=== PATIENT | female | born 2000 | race Asian ===

== ENCOUNTER 2024-03-03 12:20 | Outpatient (AMB) | payer SELFPAY ==
--- NOTE | 2024-03-03 12:29 | MHC.OFFWIV ---
Intake Vital Signs 03/03/24 12:33 Height 4 ft 8 in Weight 95 lb BMI 21.3 BP 110/70 Blood Pressure Location Lt brachial Position Sitting Pulse 62 Pulse Source Pulse Oximeter Pulse Oximetry (%) 100 Oxygen Delivery Method Room Air Intake Visit Reasons: EP ? UTI Intake Note: Patient here for burning when urinating that has been present for about 1 week. Patient Tobacco Use Status: Never used Tobacco Allergies No Known Allergies Allergy (Verified 03/03/24 12:34) Do you need a note to return to daycare/school/sports/work: No HPI HPI Comments History of Present Illness Details Patient is a 23-year-old female who is here with her mother complaining of few days of burning with urination, increased frequency of urination and feeling like she does not completely empty her bladder. She denies any blood in her urine low back pain or fevers. [facility] Social History Patient Tobacco Use Status: Never used Tobacco Review of Systems Const All systems reviewed & are unremarkable except as noted in HPI and below Physical Exam Vital Signs: Last Vital Signs Pulse 41 L 03/03/24 12:33 BP 110/70 03/03/24 12:33 Pulse Ox 100 03/03/24 12:33 Oxygen Delivery Method Room Air 03/03/24 12:33 BMI result Body Mass Index 21.3 Const General: cooperative, healthy appearing, comfortable and no acute distress Orientation/consciousness: patient oriented x3 HEENT Head: Yes normal to inspection Ears: hearing grossly normal bilaterally General nose exam: Normal external nose present Face and sinus: Yes normal facial exam Neck Neck: Yes normal visual inspection, Yes trachea midline and Yes supple Resp Effort & Inspection: normal respiratory effort and able to speak in complete sentences Skin General skin exam: no rashes or lesions noted Neuro General: patient oriented x3 Psych Appearance: grossly normal Speech and movement: Normal speech and movement present Attitude: cooperative Thought process: Normal thought process present Insight: Good insight present (Psych) Judgement: Good judgement present (Psych) Assessment & Plan Assessment & Plan (1) UTI (urinary tract infection): Code(s): N39.0 - Urinary tract infection, site not specified Qualifiers: Urinary tract infection type: acute cystitis Hematuria presence: without hematuria Qualified Code(s): N30.00 - Acute cystitis without hematuria Plan: UA negative for infection or blood, we will send antibiotic and treat patient based on her symptoms. Recommended if she develops a fever or blood in her urine to follow up with her PCP Plan See above Medications: New nitrofurantoin monohyd/m-cryst 100 mg (Macrobid) must administer with a meal/food 100 mg PO Q12H 5 days 10 caps 0RF Coding Level of Care Code New Pt Level 3 (72546) Diagnoses Acute cystitis without hematuria N30.00 Urinary tract infection type: acute cystitis Hematuria presence: without hematuria
[2024-03-03 12:33] VITALS: BP 110/70; PULSE 62; O2SAT 100; BMI 21.3
== END 2024-03-03 13:42 | disposition home or self-care (01) ==
PROVIDERS: Visit Provider Physician Assistant
DX: N30.00 Acute cystitis without hematuria (principal)

== ENCOUNTER → 2024-03-03 12:20 | Outpatient (BNVA) | payer SELFPAY | DX: N30.00 Acute cystitis without hematuria (principal) | CPT/HCPCS: 81003; 99202 ==

== ENCOUNTER 2025-03-28 11:14 | Outpatient (REF) | payer OTHER, SELFPAY ==
--- NOTE | ~2025-03-28 | XR_ITS ---
EXAMINATION: XR HIP, RIGHT CLINICAL INFORMATION: M79.604 - Pain in right leg COMPARISON: None available. TECHNIQUE: Two views of the right hip. Pelvis 1 view. FINDINGS: Right hip: No visible acute fracture, dislocation or suspicious bony lesion. Hip joint space is maintained. No abnormal soft tissue calcification. Single pelvis x-ray: No visible acute fracture, dislocation or suspicious bony lesion. SI joints and symphysis pubis are intact. No suspicious soft tissue calcification. XR/XR hip RT w [id number] IMPRESSION: No radiographic evidence of acute findings Electronically signed by: Himanshu Landers MD 03/28/2025 01:53 PM EDT
== END 2025-03-28 11:15 | disposition home or self-care (01) ==
LOC: HO.HMGCX 11:14
PROVIDERS: Visit Provider Physician Assistant Medical
DX: M79.604 Pain in right leg (principal)
CPT/HCPCS: 73502; 99212

== ENCOUNTER 2025-03-28 11:14 | Outpatient (AMB) | payer OTHER, SELFPAY ==
[2025-03-28 12:35] VITALS: BP 102/68; PULSE 72; RESP 16; TEMP 36.9; O2SAT 98
--- NOTE | 2025-03-28 12:35 | AM.OFFWIN_ITS ---
Intake Vital Signs 03/28/25 12:35 Weight 116 lb BP 102/68 Blood Pressure Location Lt brachial Position Sitting Respiration 16 Pulse 72 Temp 98.4 F Pulse Oximetry (%) 98 Oxygen Delivery Method Room Air Intake Visit Reasons: EP possible muscle pull right leg/ [phone] Intake Note: Pt is coming in for right leg pain for 5 days . No recent injury. Patient Tobacco Use Status: Never used Tobacco Geographic Information Systems Manager Required: Yes Geographic Information Systems Manager Name: Kwadwo Accompanied by: Spouse Allergies No Known Allergies Allergy (Verified 03/28/25 12:40) Do you need a note to return to daycare/school/sports/work: No HPI HPI Comments History of Present Illness Details History of Present Illness - The patient is a 24-year-old [place]jarati speaking female presenting with her and clinical resource director for right leg pain. - She has been having right upper leg pa in and cramping that has persisted for f zeb days. - The pain is localized to the upper leg and began suddenly without a clear inciting event. - The patient reports no associated back , hip, or abdominal pain. - The pain is exacerbated by activities such as bending, lifting, or walking, but not by palpation. - The patient has attempted massage and exercise at home to alleviate the pain. - The patient has a history of similar p ain episodes before , which resolved spontaneously. - The pain has become more frequent and persistent since the third month of . - The patient denies any numbness, tingl ing, or history of arthritis. Physical Exam General: Cooperative, healthy appearing, comfortable, no acute distress and well developed Orientation: Patient oriented x3 Limitations: Pain in the groin area, especially when walking, bending, or lifting Respiratory: Normal respiratory effort and able to speak in complete sentences. Clear to auscultation bilaterally Cardiovascular: Regular rate and rhythm. Normal S1 and S2 Skin: No rashes or lesions noted Neuro: Sensation is intact. Extremities: FROM of the right hip, knee and ankle on the right. Adduction and abduction of the hip is intact. No click noted. TTP of the right lateral leg and upper leg anteriorly. No TTP of the knee, calf, lower leg or ankle. Strength is 5/5 on the LE. DTR are 2+. Ambulates with steady gait. Patient was informed and verbally consented to the use of an ambient scribe for clinic note documentation during this visit. [facility] Social History Patient Tobacco Use Status: Never used Tobacco Physical Exam Vital Signs: Last Vital Signs Temp 98.4 F 03/28/25 12:35 Pulse 72 03/28/25 12:35 Resp 16 03/28/25 12:35 BP 102/68 03/28/25 12:35 Pulse Ox 98 03/28/25 12:35 Oxygen Delivery Method Room Air 03/28/25 12:35 Assessment & Plan Assessment & Plan (1) Right leg pain: Code(s): M79.604 - Pain in right leg Plan Most likely sciatica vs arthritis vs ITBS vs strain plan - Plan includes obtaining an x-ray of the hip and pelvis to rule out any abnormalities. - Prescribed medication for pain management and a muscle relaxant. - rest and heat to the area - activities as tolerated - advised daily stretching - can be referred to PT if no better - follow up with PCP Orders: Orders XR hip RT w PEL1V Today M79.604 - Pain in right leg Medications: New cyclobenzaprine 5 mg PO Q8H PRN 20 tabs 0RF Muscle Spasm meloxicam 7.5 mg PO DAILY 10 tabs 0RF Coding Level of Care Code Est Pt Level 4 (73182) Diagnoses Right leg pain M79.604
--- OUTSIDE RECORDS SUMMARY | 2025-03-28 14:20 | XMS_ITS | Clinical Summary ---
Author Organization [facility] Address [address] [place] [address] Phone Care Team Providers Care Picture Booker Name Role Phone Jeaneth Conti Primary Care Provider Allergies No known active allergies Medications benzocaine-ment igs-lshfdgq-zmv e vera (DERMOPLAST) 20-0.5 % topical spray Apply 1 spray (1 g total) topically 4 (four) times a day if needed for mild pain. 78 g 5 Active estradioL (Estrace) 0.01 % (0.1 mg/gram) vaginal cream Apply small amount on tip of finger and put at vaginal opening nightly for 1 week for laceration pain. 42.5 g 5 Active vitamin iron fum-folic acid 27-0.8 mg per tablet Take 1 tablet by mouth 1 (one) time each day. 90 each 3 5 03/18/20 26 Active Active Problems Problem Noted Date Diagnosed Date Gastroesophageal reflux disease without esophagi tis 11/08/2024 Overview (11/08/2024): 11/08/2024- Taking pepsid and TUMS PRN- Good relief Anemia of mother in pregnanc y, delivered with condition 07/07/2024 Overview (10/05/2024): Iron supplements sent 08/06- taking 09/20- Normal at 28 week labs Language barrier 07/06/2024 Assessment & Plan (07/06/2024 2:40 PM EST): Speaks Ozzy Resolved Problems Problem Noted Date Diagnosed Date Resolved Date Vaginal delivery 12/30/2024 03/18/2025 12/27/2024 03/18/2025 Uterine size-date discrepanc y in third trimester 11/10/2024 03/18/2025 Aneuploidy 07/19/2024 07/20/2024 Overview (07/19/2024): Aneuploidy and microdeletion, will send for genetic counseling Maternal varicella, non-immune 07/07/2024 03/18/2025 Overview (07/07/2024): Offer vaccine PP Encounter for supervision of normal first in third trimester 07/06/2024 03/18/2025 Overview (12/08/2024): 1. [facility] site: [facility]: [address] [place] [id number] ([phone]) 2. Delivery site: [facility] 3. Mobile Mommas: No 4. Dating criteria: early ultrasound 5. Blood type: AB+ 6. Genetic screening: Date: 07/06/2024 Result: Panorama: Low risk Horizon: Neg Nuchal: Too late to be ordered Survey: WNL MSAFP: Negative 6. GBS: Negative Date: 12/06 7. FOB name: 8. Plans A. Epidural or other pain management - B. Labor support identified - C. Tdap - Date: 11/04/24 Flu - Date: n/a D. Breast or Bottle feed: Breast E. Baby's name - F. Circumcision - 9. Hospital Course: Encounters Date Type Department Care Team Description 03/18/2025 11:15 AM EDT Visit Obstetrics and Gynecology - [address] [address] Valeria Andino CNM care following vaginal delivery (Primary Dx); Care and examination of lactating mother; Fatigue, unspecified type; Anemia of mother in , delivered with condition 02/07/2025 Telephone Obstetrics and Gynecology - [address] [address] Marry Bunch CNM 12/27/2024 7:55 PM EDT Anesthesia Event [facility] - [address] [address] Jimmy Sheridan MD 12/27/2024 6:33 PM EDT - 12/30/2024 1:45 PM EDT Hospital Encounter [address] [address] Komal Altamirano MD Discharge Disposition: Home or Self Care 12/27/2024 7:54 AM EDT - 12/27/2024 9:01 AM EDT Hospital Encounter [address] [phone] Komal Altamirano MD Discharge Disposition: Home or Self Care 12/27/[address] [address] Pauly Mendez CNM from Last 3 Months Immunizations Immunization Administration Dates Next Due Tdap Tetanus diptheria acell ular pertussis (Boostrix; Adacel) 7yo and older 11/08/2024 Medical History Medical History Date Comments Patient denies medical problems Maternal varicella, non-immune 07/07/2024 O ffer vaccine PP Family History Medical History Relation Name Comments No Known Problems Brother No Known Problems Father Thyroid disease Mother Breast cancer Neg Hx Colon cancer Neg Hx Ovarian cancer Neg Hx Relation Name Status Comments Brother Alive Father Alive Maternal Grandfather Maternal Grandmother Mother Alive Paternal Grandfather Paternal Grandmother Social History Tobacco Use Types Packs/Day Years Used Date Smoking Tobacco: Never Smokeless Tobacco: Never Tobacco Cessation:Counseling Given: Not Answered Alcohol Use Standard Drinks/Week Comments Never 0 (1 standard drink = 0.6 oz pur e alcohol) Housing Instability Answer Date Recorde d Are you worried that in the next 2 months you may not have stable housing? No 12/27/2024 Food Access & Nutrition Answer Date Rec orded Do you have access to a vari ety of food including fruits and vegetables? No 12/27/2024 Access to Healthcare Answer Date Record ed Within the last 3 months, ho w many times did you visit the emergency department for your medical care? 0 12/27/2024 Health Literacy Answer Date Recorded How often do you need to hav e someone help you when you read instructions, pamphlets, or other written material from your doctor or pharmacy? Never 12/27/2024 Caregiver: How often do you need to have someone help you when you read instructions, pamphlets, or other written material from your doctor or pharmacy? Not on file 12/27/2024 Financial Risk Answer Date Recorded How hard is it for you to pa y for the very basics like food, housing, medical care, and air conditioning / heating? Patient declined 12/27/2024 Transportation Answer Date Recorded Has the lack of transportati on kept you from meetings, work, or from getting things needed for daily living? No Has the lack of transportati on kept you from medical appointments or from getting medications? No 12/27/2024 Social Isolation Answer Date Recorded How often do you feel lonely or isolated from th ose around you? Never 12/27/2024 Food Risk Answer Date Recorded Within the past 12 months we worried whether our food would run out before we got money to buy more. Never true 12/27/2024 Within the past 12 months th e food we bought just didn't last and we didn't have money to get more. Never true 12/27/2024 Dependent Care Answer Date Recorded Do you need help finding or paying for care for your loved ones. For example, residential child care counselor or elderly care for an older adult? No 12/27/2024 Education Answer Date Recorded Do you think completing more education or training, like finishing a GED, going to college, or learning a trade, would be helpful for you? No 12/27/2024 Employment and Income Answer Date Recor ded During the last four weeks, have you been actively looking for work? No 12/27/2024 Living Situation Answer Date Recorded What is your living situation? Unrecognized valu e 12/27/2024 Interpersonal Safety Answer Date Record ed Physical Abuse Unrecognized value 12/27/2024 Verbal Abuse Unrecognized value 12/27/2024 Comments No Sex and Gender Information Value Date Recorded Sex Assigned at Not on file Legal Sex Female 2:00 PM EST Gender Identity Not on file Sexual Orientation Straight 12/27/2024 8: 00 AM EDT Occupation Industry Job Start Date Job End Date unemployed Not on file Not on file Not on file Obstetrics History Para Term AB IAB SAB Ectopic Multiple Livin g Live Births 1 1 1 0 0 0 1 1 Date Outcome GA Total Labor Labor/2nd/3rd Weight Sex Type Anes PTL Hannah A1 A5 Name Clin 2024 Term 39w 5d 6h 03m 4h 38m/1h 18m/0h 07m 3080 g (108.6 oz) M Vag-S pont Epidur al N Livin g 8 9 Panth Марина l Barla R Augustoho p, CNM Complications:None Delivery Location:[facility] Last Filed Vital Signs Vital Sign Reading Time Taken Comments Blood Pressure 103/66 03/18/2025 11:27 AM EDT Pulse 58 03/18/2025 11:27 AM EDT Temperature 36.4 C (97.6 F) 12/30/2024 9:00 AM EDT Respiratory Rate 14 03/18/2025 11:2 7 AM EDT Oxygen Saturation 100% 12/30/2024 9:00 AM EDT Inhaled Oxygen Concentration - - Weight 51.6 kg (113 lb 12.8 oz) 025 11:27 AM EDT Height 139.7 cm (4' 7 ) 12/27/2024 6:38 PM EDT Body Mass Index 26.45 12/27/2024 6:38 PM EDT Plan of Treatment Health Maintenance Due Date Last Done Comments HPV Vaccines (1 - 3-dose series) 2014 Hepatitis B Vaccines (1 of 3 - 19+ 3-dose series) 2018 Depression Screening 06/02/2024 COVID-19 Vaccine (1 - 2023-2 5 season) 2025 Influenza Vaccine (#1) 2025 Social Influencers of Health Screening 12/27/2025 12/27/2024 Cervical Cancer Screening: Pap Smear 07/09/2027 07/09/2024 DTaP,Tdap,and Td Vaccines (3 - Td or Tdap) 11/08/2034 11/08/2024, 11/22/2022 RSV Immunization Adult Patients (1 - 1-dose 75+ series) 2074 HIV Screening Completed 07/06/2024 Hepatitis C Screening Completed 07/06/2024 Gonorrhea/Chlamydia Screening Discontinued 07/09/2024 HIB Vaccines Aged Out No longer eligi ble based on patient's age to complete this topic Hepatitis A Vaccines Aged Out No long er eligible based on patient's age to complete this topic IPV Vaccines Aged Out No longer eligi ble based on patient's age to complete this topic MMR Vaccines Aged Out No longer eligi ble based on patient's age to complete this topic Meningococcal ACWY Vaccine Aged Out N o longer eligible based on patient's age to complete this topic Meningococcal B Vaccine Aged Out No l onger eligible based on patient's age to complete this topic Pneumococcal Vaccine: Pediatrics (0 to 5 Years) and At-Risk Patients (6 to 49 Years) Aged Out No longer eligible based on patient's age to complete this topic RSV Immunization Patients Under 20 months Aged Out No longer eligible based on patient's age to complete this topic Varicella Vaccines Aged Out No longer eligible based on patient's age to complete this topic Procedures Procedure Name Priority Date/Time Associated Diagnosis Comments TH AN NERVE BLK LUMBAR EPIDURAL (NO CHARGE) Routine 12/27/2024 8:00 PM EDT CBC WITH AUTO DIFFERENTIAL STAT 12/27/2024 7:26 PM EDT CBC AND DIFFERENTIAL STAT 12/27/2024 7:26 PM EDT ASPARTATE AMINOTRANSFERASE STAT Add-on 12/27/2024 7:25 PM EDT ALANINE AMINOTRANSFERASE STAT Add-on 12/27/2024 7:25 PM EDT TREPONEMA PALLIDUM ANTIBODY WITH REFLEX TO RPR AND PARTICLE AGGLUTINATION STAT 12/27/2024 7:25 PM EDT TYPE AND SCREEN STAT 12/27/2024 7:25 PM EDT PAP SMEAR Routine 07/09/2024 3:01 PM EST Screening for cervical cancer CHLAMYDIA TRACHOMATIS AND NEISSERIA GONORRHOEAE BY TMA, THINPREP Routine 07/09/2024 3:01 PM EST Screening for cervical cancer HEPATITIS C ANTIBODY Routine 07/06/2024 2:54 PM EST Encounter for supervision of normal first in second trimester HIV 1, 2 ANTIBODY, P24 ANTIGEN WITH REFLEX TO DIFFERENTIATION Routine 07/06/2024 2:54 PM EST Encounter for supervision of normal first in second trimester from Last 3 Months or Most Recently Relevant to Health Maintenance Results * TH AN NERVE BLK LUMBAR EPIDURAL (NO CHARGE) (12/27/2024 8:00 PM EDT) Jimmy Lawrence MD - 12/27/2024 8:00 PM EDT Jimmy Sheridan MD 12/27/2024 8:16 PM Epidural Block Patient location during procedure: OB Start time: 12/27/2024 8:00 PM End time: 12/27/2024 8:07 PM Reason for block: labor epidural Staffing Performed: anesthesiologist Anesthesiologist: Jimmy Sheridan MD Performed by: Jimmy Sheridan MD Authorized by: Jimmy Sheridan MD Preanesthetic Checklist Completed: patient identified, IV checked, risks and benefits discussed, surgical consent, monitors and equipment checked, pre-op evaluation and timeout performed Epidural Patient Position: sitting Monitoring: heart rate, continuous pulse ox and NIBP Approach: midline Vertebral Space: lumbar Lumbar Location: L3-4 Needle Needle type: Tuohy Needle gauge: 17 G Needle length: 8.5 cm Needle insertion depth: 3 cm Catheter at skin depth: 10 cm Test dose: negative and lidocaine 1.5% with epinephrine 1-to-200,000 Assessment Events: negative aspiration for heme and no paresthesia on injection us Jimmy Sheridan MD ANESTHESIA ORDERABLES Final Re sult * (ABNORMAL) CBC auto differential (12/27/2024 7:26 PM EDT) [facility] WBC 6.5 4.8 - 10.8 K/mcL LAB HEMETOLOGY METHOD 12/27/2024 7:42 PM EDT [facility] RBC 4.00 3.80 - 4.80 M/mcL LAB HEMETOLOGY METHOD 12/27/2024 7:42 PM EDT [facility] Hemoglobin 12.7 11.5 - 16.0 g/dL LAB HEMETOLOGY METHOD 12/27/2024 7:42 PM EDT [facility] Hematocrit 36.8 35.0 - 47.0 % LAB HEMETOLOGY METHOD 12/27/2024 7:42 PM EDT [facility] MCV 92.5 79.0 - 98.0 FL LAB HEMETOLOGY METHOD [facility] MCH 31.9 27.0 - 32.0 pcg LAB HEMETOLOGY METHOD 12/27/2024 7:42 PM EDT [facility] MCHC 34.5 32.0 - 37.0 g/dL LAB HEMETOLOGY METHOD 12/27[facility]2024 [facility] RDW 11.9 11.0 - 15.0 % LAB HEMETOLOGY METHOD 12/27/2024 7[facility] Platelets 215 130 - 400 K/mcL LAB HEMETOLOGY METHOD 12/27/2024 7:42 PM EDT [facility] MPV 9.7 7.0 - 11.0 FL LAB HEMETOLOGY METHOD 12/27/2024 7:42 PM EDT [facility] NRBC 0.0 <1.0 % LAB HEMETOLOGY METHOD 12/27/2024 7:42 PM EDT [facility] NRBC Absolute 0.00 <0.10 K/mcL LAB HEMETOLOGY METHOD 12/27/2024 7:[address] [facility] Neutrophils Relative 65.3 % LAB HEMETOLOGY METHOD [facility] Lymphocytes Relative 21.6 % LAB HEMETOLOGY METHOD 12/27/2024 7:[address] [facility] Monocytes Relative 11.2 % LAB HEMETOLOGY METHOD 12/27/2024 7:[address] [facility] Eosinophils Relative 0.8 % LAB HEMETOLOGY METHOD 12/27/2024 7:[address] [facility] Basophils Relative 0.3 % LAB HEMETOLOGY METHOD 12/27/2024 7:[address] [facility] Immature Granulocytes Relative 0.8 % LAB HEMETOLOGY METHOD 12/27/2024 7:[address] [facility] Neutrophils Absolute 4.28 1.50 - 7.00 K/mcL LAB HEMETOLOGY METHOD 12/27/2024 7:[address] [facility] Lymphocytes Absolute 1.41 1.00 - 5.00 K/mcL LAB HEMETOLOGY METHOD 12/27/2024 7:[address] [facility] Monocytes Absolute 0.73 0.20 - 1.00 K/mcL LAB HEMETOLOGY METHOD 12/27/2024 7:[address] [facility] Eosinophils Absolute 0.05 0.00 - 0.50 K/mcL LAB HEMETOLOGY METHOD 12/27/2024 7:[address] [facility] Basophils Absolute 0.02 0.00 - 0.20 K/mcL LAB HEMETOLOGY METHOD 12/27/2024 7:[address] [facility] Immature Granulocytes Absolute 0.05(H) 0.00 - 0.03 K/mcL LAB HEMETOLOGY METHOD 12/27/2024 7:[address] [facility] Blood Venous blood specimen / Unknown Venipuncture / Unknown 12/27/2024 7:26 PM EDT 12/27/2024 7:30 PM EDT [facility] LAB BLOOD ORDERABLES Final Re sult Performing Organization Address [facility]/ZIP Co de Phone Number [facility] [address] [place] [address], [place] [phone] * Treponema pallidum antibody with reflex to RPR and particle agglutination (12/27/2024 7:25 PM EDT) T. Pallidum Antibodies Negative Negative LAB CHEMISTRY METHOD 12/27/2024 8:12 PM EDT [facility] Blood Venous blood specimen / Unknown Venipuncture / Unknown 12/27/2024 7:25 PM EDT 12/27/2024 7:30 PM EDT [facility] LAB BLOOD ORDERABLES Final Re sult Performing Organization Address [facility] de Phone Number [facility] [address] [place] [address], [place] [phone] * Type and screen (12/27/2024 7:25 PM EDT) ABO Group AB 12/27/2024 8:37 PM EDT [facility] Rh Type Positive 12/27/2024 8:37 PM EDT [facility] Antibody Screen Negative 12/27/2024 8:37 PM EDT [facility] Blood Venous blood specimen / Unknown Venipuncture / Unknown 12/27/2024 7:25 PM EDT 12/27/2024 7:30 PM EDT [facility] LAB BLOOD BANK TEST ORDERABLE S Final Result Performing Organization Address City/[facility]/ZIP Co de Phone Number [facility] [address] [place] [address], [place] [phone] * Alanine aminotransferase (12/27/2024 7:25 PM EDT) [facility] ALT (SGPT) 16 10 - 60 unit/L LAB CHEMISTRY METHOD 12/27/2024 9:32 PM EDT [facility] Blood Venous blood specimen / Unknown Venipuncture / Unknown 12/27/2024 7:25 PM EDT 12/27/2024 7:30 PM EDT Antionette Coleman [facility] BLOOD ORDERABLES Final Re sult Performing Organization Address [facility]/ZIP Co de Phone Number [facility] [address] [place] [address], [place] [phone] * Aspartate aminotransferase (12/27/2024 7:25 PM EDT) [facility] AST (SGOT) 16 10 - 42 unit/L LAB CHEMISTRY METHOD 12/27/2024 9:32 PM EDT [facility] Blood Venous blood specimen / Unknown Venipuncture / Unknown 12/27/2024 7:25 PM EDT 12/27/2024 7:30 PM EDT Antionette Coleman [facility] BLOOD ORDERABLES Final Re sult [facility] [address] [place] [address], [place] [phone] * Chlamydia trachomatis and neisseria gonorrhoeae by tma, thinprep (07/09/2024 3:01 PM EST) [facility] N. gonorrhoeae, RNA Probe Negative Negative LAB MICROBIOLOGY METHOD 07/13/2024 12:41 PM EST [facility] Chlamydia, RNA Probe Negative Negative LAB MICROBIOLOGY METHOD 07/13/2024 12:41 PM EST [facility] Brushing/Spatula Cervix uteri structure / Unknown 07/09/2024 3:01 PM EST 07/13/2024 6:14 AM EST us Marry MCKEON LAB CYTOLOGY ORDERABLES Final Result [facility] [address] [place] [address], * Pap smear (07/09/2024 3:01 PM EST) Interpretation Negative for intraepithelial lesion or malignancy 07/14/2024 4:37 PM [facility] General Categorization Negative 07/14/2024 4:37 PM [facility] Specimen Adequacy Satisfactory for evaluation, endocervical/ruiz sformation zone component absent 07/14/2024 4:37 PM [facility] Pap Methodology Liquid Based Pap Test 07/14/2024 4:37 PM [facility] Disclaimer The Pap test is a screening test which carries an inherent false negative rate. These test results should be correlated with the patient's clinical findings and history. This Pap test was processed using an automated screening system. Technical cytopathology services provided by [facility], at [address] [place] [id number] (CLIA # [id number]/José Miguel Heard MD, Environmental Field Professional.) 07/14/2024 4:37 PM [facility] Console Pap Interpretation Reported 07/14/2024 4:37 PM [facility] Brushing/Spatula Cervix uteri structure / Unknown 07/09/2024 3:01 PM EST 07/09/2024 3:02 PM EST us Marry MCKEON LAB CYTOLOGY ORDERABLES Final Result Performing Organization Address [facility]/ZIP Co de Phone Number [facility] [address] [place] [address], [place] [phone] * Hepatitis C antibody (07/06/2024 2:54 PM EST) Hepatitis C Antibody Negative Negative LAB CHEMISTRY METHOD 07/06/2024 8:12 PM EST [facility] Blood Venous blood specimen / Unknown Venipuncture / Unknown 07/06/2024 2:54 PM EST 07/06/2024 2:55 PM EST us Marry Bunch [facility] BLOOD ORDERABLES Final Res ult Performing Organization Address [facility] de Phone Number [facility] [address] [place] [address], [place] [phone] * HIV 1,2 antibody, p24 antigen with reflex to differentiation (07/06/2024 2:54 PM EST) Pathologist [facility] HIV Combo AB/AG Negative Negative LAB CHEMISTRY METHOD 07/06/2024 8:13 PM EST [facility] Blood Venous blood specimen / Unknown Venipuncture / Unknown 07/06/2024 2:54 PM EST 07/06/2024 2:55 PM EST Narrative [facility] - 07/06/2024 8:13 PM EST This assay is a 4th generation assay allowing for earlier detection of HIV infection by detecting the presence of the HIV-1 p24 antigen as well as the traditional antibodies to HIV type 1 (including group O) and type 2. Use of a 4th generation assay is the current CDC recommendation for HIV screening. us Marry Bunch [facility] BLOOD ORDERABLES Final Res ult Performing Organization Address [facility] Co de Phone Number [facility] [address] [place] [address], [place] [phone] from Last 3 Months or Most Recently Relevant to Health Maintenance Insurance [facility] [employer] Advance Directives * Full Code - Default (Latest Code Status on File) Date Activated Date Inactivated Comments 12/28/2024 2:42 AM 12/30/2024 3:57 PM This is orde r is used when code status has not been discussed with the patient, or code status is otherwise unknown/unconfirmed To update the patient's code status, place a code status order. Do not modify or discontinue any currently active code status orders. * Full Code - Confirmed Date Activated Date Inactivated Comments 12/27/2024 7:07 PM 12/28/2024 2:[address] atus was ascertained in the following way: Code status discussion: Per Policy on Life-Sustaining Measures: To update the patient's code status, place a code status order. Do not modify or discontinue any currently active code status orders. Care Teams Picture Booker Relationship Specialty Start Date End Date Jeaneth Conti FNP [address] [place] [address] PCP - General Nurse Practitioner 09/03/24
== END 2025-03-28 14:11 | disposition home or self-care (01) ==
PROVIDERS: Visit Provider Physician Assistant Medical
DX: M79.604 Pain in right leg (principal)